=== PATIENT | male | born 1980 | race Caucasian/White ===

== ENCOUNTER 2016-07-05 16:28 | Emergency (ER) | payer SELFPAY | END 2016-07-05 17:26 | disposition home or self-care (01) | LOC: ER 16:28 | DX: T81.4XXA Infection following a procedure, initial encounter (principal); S51.812D Laceration without foreign body of left forearm, subsequent encounter; L08.9 Local infection of the skin and subcutaneous tissue, unspecified; F17.200 Nicotine dependence, unspecified, uncomplicated; Z88.8 Allergy status to other drugs, medicaments and biological substances | CPT/HCPCS: 99282 ==